=== PATIENT | female | born 1960 | race Caucasian/White ===

== ENCOUNTER 2017-03-20 10:09 | Outpatient (CLI) | payer BC | END 2017-03-20 10:10 | disposition home or self-care (01) | LOC: BICMAMMO 10:09 | PROVIDERS: ATTEND Family Medicine | DX: Z12.31 Encounter for screening mammogram for malignant neoplasm of breast (principal) | CPT/HCPCS: 77063 ==

== ENCOUNTER 2017-07-12 17:02 | Emergency (ER) | payer BC ==
[2017-07-12] MEDS ORDERED: Ibuprofen 800 MG TAB ONE (17:57)
--- NOTE | 2017-07-12 20:21 | RAD ---
THREE VIEWS OF THE LEFT ANKLE: 07/12/17 INDICATION: Left ankle pain. COMPARISON: None. FINDINGS: No acute fracture or subluxation is evident. Soft tissue swelling overlying the left ankle. The visua lized hindfoot appears within normal limits. Enthesopathic changes seen off the calcaneus. IMPRESSION: No acute osseous abnormality. POS: [facility]
== END 2017-07-12 18:45 | disposition home or self-care (01) ==
LOC: SCSER 17:02
DX: M02.372 Reiter's disease, left ankle and foot (principal); K21.9 Gastro-esophageal reflux disease without esophagitis; I10 Essential (primary) hypertension; F32.9 Major depressive disorder, single episode, unspecified; Z79.899 Other long term (current) drug therapy

== ENCOUNTER 2017-09-03 14:28 | Outpatient (CLI) | payer BC ==
--- NOTE | 2017-09-03 19:13 | MRI ---
MRI LEFT ANKLE: 09/03/2017 PROVIDED CLINICAL HISTORY: Ankle pain, status post injury. FINDINGS: There is a peroneus brevis split tear at and distal to the level of the lateral malleolus. There is associated conspicuous common peroneal tenosynovial fluid. the peroneus longus appears intact. The anterior extensor, medial flexor, and Achilles tendons demonstrate an intact MR appearance. The medial and lateral ankle ligaments appear intact. No focal articular cartilage defect is apparent. There is preservation of the normal tarsal sinus fat signal intensity. The plantar aponeurosis appea rs normal. Regional marrow and muscular signal appear normal. No regional joint effusion is evident . IMPRESSION: Peroneus brevis split tear with associated common peroneal tenosynovitis. POS: [facility]
--- NOTE | 2017-09-03 19:19 | MRI ---
MRI LEFT FOOT: 09/03/2017 PROVIDED CLINICAL HISTORY: Left ankle pain. FINDINGS: The peroneus brevis split tear is described on concurrent left ankle MRI. Please see that report. The dorsal extensor and plantar flexor tendons demonstrate an intact MR appearance. Regional marrow and muscular signal appear normal. Alignment appears anatomic. No regional joint effusion is eviden t. The Lisfranc ligamentous complex appears intact. The courses of the regional neurovascular struc tures appear unremarkable. IMPRESSION: Unremarkable MRI of the left midfoot and forefoot. Please see concurrently dictated MRI of the left hindfoot for details regarding the peroneus brevis tendon. POS: [facility]
== END 2017-09-03 14:29 | disposition home or self-care (01) ==
LOC: SCSMRI 14:28
PROVIDERS: ATTEND Family Medicine
DX: S96.812A Strain of other specified muscles and tendons at ankle and foot level, left foot, initial encounter (principal); M65.872 Other synovitis and tenosynovitis, left ankle and foot

== ENCOUNTER 2018-04-01 16:05 | Outpatient (CLI) | payer BC | END 2018-04-01 16:06 | disposition home or self-care (01) | LOC: BICMAMMO 16:05 | PROVIDERS: ATTEND Family Medicine | DX: Z12.31 Encounter for screening mammogram for malignant neoplasm of breast (principal) | CPT/HCPCS: 77063; 77067 ==

== ENCOUNTER 2018-07-30 11:32 | Outpatient (CLI) | payer BC ==
--- NOTE | 2018-07-30 13:10 | RAD ---
2 VIEWS ABDOMEN: Date: 07/30/18 PROVIDED CLINICAL HISTORY: Abdominal pain. FINDINGS: The visualized lung bases are clear. The upright view demonstrates no evidence for pneumoperitoneum. Cholecystectomy clips are seen in the right upper quadrant. The abdominal bowel gas pattern is nonspe cific. No radiographically apparent urinary tract calculi. IMPRESSION: Nonspecific bowel gas pattern. POS: [facility]
== END 2018-07-30 11:33 | disposition home or self-care (01) ==
LOC: BICRAD 11:32
PROVIDERS: ATTEND Physician Assistant Medical
DX: R10.9 Unspecified abdominal pain (principal); R19.4 Change in bowel habit; R14.0 Abdominal distension (gaseous)
CPT/HCPCS: 74019

== ENCOUNTER 2019-04-01 16:04 | Outpatient (CLI) | payer BC ==
--- NOTE | 2019-04-01 16:42 | MMO ---
Bilateral MAMMO Bilat Screen [facility]. CLINICAL HISTORY: Patient is 58 years old and is seen for screening. The patient has no family history of breast cancer. The patient has no personal history of cancer. VIEWS: The views performed were: bilateral craniocaudal with tomosynthesis and bilateral mediolateral oblique with tomosynthesis. FILMS COMPARED: The present examination has been compared to prior imaging studies performed at [facility] on 03/20/2017 and 04/01/2018, and at [facility] on 05/21/2013 and 01/22/2016. This study has been interpreted with the assistance of computer-aided detection. MAMMOGRAM FINDINGS: Finding 1: There are stable benign appearing calcifications seen in the left breast. Finding 2: There are multiple stable masses of varying size seen in both breasts. There are no suspicious masses, suspicious calcifications, or new areas of architectural distortion. IMPRESSION: THERE IS NO MAMMOGRAPHIC EVIDENCE OF MALIGNANCY. A ROUTINE FOLLOW-UP MAMMOGRAM IN 1 YEAR IS RECOMMENDED. THE RESULTS OF THIS EXAM WERE SENT TO THE PATIENT. ACR BI-RADS Category 2 - Benign finding MAMMOGRAPHY NOTE: 1. A negative mammogram report should not delay a biopsy if a dominant of clinically suspicious mass is present. 2. Approximately 10% to 15% of breast cancers are not detected by mammography. 3. Adenosis and dense breasts may obscure an underlying neoplasm. Reported by: COLE CERDA MD Electonically Signed: [id number]
== END 2019-04-01 16:05 | disposition home or self-care (01) ==
LOC: BICMAMMO 16:04
PROVIDERS: ATTEND Physician Assistant
DX: Z12.31 Encounter for screening mammogram for malignant neoplasm of breast (principal)
CPT/HCPCS: 77063; 77067

== ENCOUNTER 2020-05-26 08:38 | Outpatient (CLI) | payer BC | END 2020-05-26 08:39 | disposition home or self-care (01) | LOC: BICMAMMO 08:38 | PROVIDERS: ATTEND Physician Assistant | DX: Z12.31 Encounter for screening mammogram for malignant neoplasm of breast (principal) | CPT/HCPCS: 77063; 77067 ==

== ENCOUNTER 2021-03-30 15:00 | Outpatient (CLI) | payer BC ==
[~2021-03-30 15:00] MED LIST: Iopamidol 370 76% 100 ML VIAL ONE
== END 2021-03-30 15:01 | disposition home or self-care (01) ==
LOC: BICCT 15:00
PROVIDERS: ATTEND Physician Assistant
DX: R10.32 Left lower quadrant pain (principal); R10.2 Pelvic and perineal pain; R59.0 Localized enlarged lymph nodes
CPT/HCPCS: 70491; 76856; Q9967

== ENCOUNTER 2021-06-29 11:01 | Outpatient (CLI) | payer BC | END 2021-06-29 11:02 | disposition home or self-care (01) | LOC: BICMAMMO 11:01 | PROVIDERS: ATTEND Family Medicine | DX: Z12.31 Encounter for screening mammogram for malignant neoplasm of breast (principal) | CPT/HCPCS: 77063; 77067 ==

== ENCOUNTER 2022-01-03 10:20 | Outpatient (CLI) | payer BC | END 2022-01-03 10:21 | disposition home or self-care (01) | LOC: BICRAD 10:20 | PROVIDERS: ATTEND Nurse Practitioner Family | DX: M25.551 Pain in right hip (principal); M16.11 Unilateral primary osteoarthritis, right hip | CPT/HCPCS: 72100 ==

== ENCOUNTER 2022-07-01 09:43 | Outpatient (CLI) | payer BC | END 2022-07-01 09:44 | disposition home or self-care (01) | LOC: BICMAMMO 09:43 | PROVIDERS: ATTEND Nurse Practitioner Family | DX: Z12.31 Encounter for screening mammogram for malignant neoplasm of breast (principal) | CPT/HCPCS: 77063; 77067 ==

== ENCOUNTER 2023-09-18 14:30 | Outpatient (CLI) | payer BC | END 2023-09-18 14:31 | disposition home or self-care (01) | LOC: SCSMRI 14:30 | PROVIDERS: ATTEND Psychiatry & Neurology Neurology | DX: M51.36 Other intervertebral disc degeneration, lumbar region (principal) | CPT/HCPCS: 72148 ==